=== PATIENT | female | born 1955 | race Caucasian/White ===

== ENCOUNTER 2022-11-27 14:32 | Outpatient (REF) | payer MEDICARE, SELFPAY ==
--- NOTE | ~2022-11-27 | XR_ITS ---
EXAMINATION: Thoracic and lumbar spine x-ray CLINICAL INFORMATION: Scoliosis COMPARISON: None. TECHNIQUE: 2 views of the thoracic spine and 2 views of the lumbar spine FINDINGS: There is curvature of the lower thoracic spine to the right with apex at T8. Bone alignment is otherwise normal. No fracture or dislocation. Disc spaces are normal. Paraspinal soft tissues are normal. Lumbar spine: There is curvature of the proximal lumbar spine to the left with apex at L2. Bone alignment is otherwise normal. No fracture or dislocation. Degenerative spondylosis and degenerative disc disease at L1-L2. Lower lumbar spine facet arthritis. Atherosclerotic disease. XR/XR lumbar spine 2-3V IMPRESSION: Thoracolumbar scoliosis.
--- NOTE | ~2022-11-27 | XR_ITS ---
EXAMINATION: Thoracic and lumbar spine x-ray CLINICAL INFORMATION: Scoliosis COMPARISON: None. TECHNIQUE: 2 views of the thoracic spine and 2 views of the lumbar spine FINDINGS: There is curvature of the lower thoracic spine to the right with apex at T8. Bone alignment is otherwise normal. No fracture or dislocation. Disc spaces are normal. Paraspinal soft tissues are normal. Lumbar spine: There is curvature of the proximal lumbar spine to the left with apex at L2. Bone alignment is otherwise normal. No fracture or dislocation. Degenerative spondylosis and degenerative disc disease at L1-L2. Lower lumbar spine facet arthritis. Atherosclerotic disease. XR/XR thoracic spine 2V IMPRESSION: Thoracolumbar scoliosis.
== END 2022-11-27 14:33 | disposition home or self-care (01) ==
LOC: HO.HOSX 14:32
PROVIDERS: PCP Internal Medicine; Visit Provider Neurological Surgery
DX: M41.35 Thoracogenic scoliosis, thoracolumbar region (principal); M41.9 Scoliosis, unspecified
CPT/HCPCS: 72070; 72100; 99202

== ENCOUNTER → 2023-01-25 13:21 | Outpatient (BNVA) | payer MEDICARE, SELFPAY | PROVIDERS: PCP Internal Medicine; Visit Provider Nurse Practitioner Family | DX: M41.35 Thoracogenic scoliosis, thoracolumbar region (principal); M51.36 Other intervertebral disc degeneration, lumbar region; M41.9 Scoliosis, unspecified | CPT/HCPCS: 99202 ==

== ENCOUNTER 2023-03-12 06:02 | Outpatient (REF) | payer MEDICARE, SELFPAY ==
--- NOTE | ~2023-03-12 | FL_ITS ---
EXAMINATION: XR FLUOROSCOPY WITH IMAGES CLINICAL INFORMATION: Other intervertebral disc degeneration, lumbar region. COMPARISON: None available. TECHNIQUE: Fluoroscopy Supervised By: Dr. Dante Ferrer. Fluoroscopy Time: 0.8 minutes. Cumulative Dose: 33.5 mGy. DAP: 0.526 mGy-m2. Images: 2. FINDINGS: 2 lateral views demonstrate needle placement projecting over a posterior disc space of the lumbar spine. FL/FL guidance in treatment room IMPRESSION: Fluoroscopy guidance for pain management procedure.
== END 2023-03-12 06:03 | disposition home or self-care (01) ==
LOC: CF 06:02
PROVIDERS: Visit Provider Anesthesiology
DX: M51.36 Other intervertebral disc degeneration, lumbar region (principal); M51.35 Other intervertebral disc degeneration, thoracolumbar region; M51.16 Intervertebral disc disorders with radiculopathy, lumbar region; M41.9 Scoliosis, unspecified
CPT/HCPCS: 64483; J3301; Q9967

== ENCOUNTER 2023-03-12 11:03 | Outpatient (AMB) | payer MEDICARE, SELFPAY ==
--- NOTE | 2023-03-12 11:08 | MHC.OFFVIS ---
Intake Vital Signs 03/12/23 11:09 03/12/23 12:27 Height 5 ft 4 in 5 ft 4 in Weight 188 lb 188 lb BMI 32.3 32.3 BP 124/58 L 128/80 Blood Pressure Location Rt brachial Rt brachial Position Sitting Sitting Respiration 14 14 Pulse 100 96 Pulse Source Pulse Oximeter Pulse Oximeter Pulse Oximetry (%) 95 96 Oxygen Delivery Method Room Air Room Air Comment Pre-op Post-op Intake Visit Reasons: R L2 TF EPIDURAL INJ/LOCAL Allergies No Known Allergies [No Known Allergies*] Allergy (Verified 03/12/23 11:08) PFSH Medical History (Updated 01/25/23 @ 13:59 by FATUMA Gu) Depression GERD (gastroesophageal reflux disease) Hypercholesteremia Hypertension Social History (Updated 01/25/23 @ 13:37 by Carmela Garcia) Patient Tobacco Use Status: Current everyday Tobacco user Tobacco use type: Cigarette Cigarette Packs Per Day: 1.5 Substance Use Type: Caffiene Physical Exam Vital Signs: Last Vital Signs Pulse 96 03/12/23 12:27 Resp 14 03/12/23 12:27 BP 128/80 03/12/23 12:27 Pulse Ox 96 03/12/23 12:27 Oxygen Delivery Method Room Air 03/12/23 12:27 BMI result Body Mass Index 32.3 Assessment & Plan Assessment & Plan (1) Thoracogenic scoliosis, thoracolumbar region: Code(s): M41.35 - Thoracogenic scoliosis, thoracolumbar region (2) Lumbar degenerative disc disease: Code(s): M51.36 - Other intervertebral disc degeneration, lumbar region Plan: Right L2-L3 Transforaminal epidural steroid injection Informed consent was thoroughly explained to the patient before the procedure. The patient came to the operating room. She was positioned prone on operating table with a pillow under her abdomen. Time-out was performed delineating correct site and side of the procedure, nature of the injection, name and date of of the patient. The lower back of the patient was prepped with ChloraPrep and draped with sterile utility towels. C-arm was brought over the operating field and sq picture of L3 vertebra was demonstrated on the screen. The right side was chosen as the side of the injection. Tilting machine ipsilateral to the right at the level of L3 the most prominent picture of the right L3 superior articular process was obtained on the screen. At the projection of the lateral border of the SAP L3 to the skin small amount of lidocaine 1% 3-4 cc was injected to anesthetize the skin and s/q tissues. After that 5 in 22 gauge Quincke point needle was inserted through the skin wheal and was advanced to were the L2-L3 foramina on anterior posterior and oblique views intermittently.When needle tip contacted the bone the needle was deviated laterally and after that medially to advance it below the SAP and into the L2-L3 foramina. On lateral view the needle appeared to be at the lateral superior portion of the foramina. The injection of the contrast was performed demonstrating only perineural spread of the contrast and no epidural spread of the contrast. The decision was made to withdraw the needle and the needle was repositioned. The most prominent picture of right to pedicle was demonstrated on the screen. 2 mm below the most inferior border of the pedicle projection to the skin injection of the local anesthetic lidocaine was performed. After that 22 gauge 5 in needle was driven to were the L2-L3 foramina under anterior posterior lateral and oblique views. When needle entered foramina injection of the contrast performed demonstrating epidural spread of the contrast. Aspiration reveals no no blood no CSF. Injection of the treatment medicine preservative-free lidocaine 2 cc was performed into the needle. Upon completion of the injection needle was removed sterile Band-Aid was applied. The patient tolerated procedure well. She was taking outside of the operating room to recovery room where she recovered uneventfully. She went home without immediate complications. (3) Scoliosis: Code(s): M41.9 - Scoliosis, unspecified Plan 1. Schedule Right L1 and L2 Nerve Block with local and fluoroscopy. Patient will follow up with Dr. Cárdenas post-injections to discuss a more permanent solution for thoracogenic scoliosis if these injections are successful. 2. Patient reports Meloxicam has been ineffective. Script sent for Nabumetone prn severe pain only, side effects and precautions were discussed with patient. All questions and concerns have been answered and patient agreed with the plan. Follow up as needed. Justification for interventional therapy: ? Patient with average pain > 6/10 ? Patient has exhausted conservative therapy, NSAIDs, physical and chiropractic therapy The risks, consequences, alternatives, and benefits of various treatment options were discussed with the patient in great detail, including conservative management, injections and procedures. Orders: Orders FL guidance in treatment room 03/12/23 M51.36 - Other intervertebral disc degeneration, lumbar region Coding Level of Care Code Procedure Only Diagnoses Thoracogenic scoliosis, thoracolumbar region M41.35 Lumbar degenerative disc disease M51.36 Scoliosis M41.9
[2023-03-12 11:09] VITALS: BP 124/58; PULSE 100; RESP 14; O2SAT 95; BMI 32.3
[2023-03-12 12:27] VITALS: BP 128/80; PULSE 96; RESP 14; O2SAT 96; BMI 32.3
== END 2023-03-12 12:18 | disposition home or self-care (01) ==
PROVIDERS: PCP Internal Medicine; Visit Provider Anesthesiology
DX: M51.16 Intervertebral disc disorders with radiculopathy, lumbar region (principal); M41.35 Thoracogenic scoliosis, thoracolumbar region; M41.9 Scoliosis, unspecified
CPT/HCPCS: 64483

== ENCOUNTER 2023-03-26 06:01 | Outpatient (REF) | payer MEDICARE, SELFPAY ==
--- NOTE | ~2023-03-26 | FL_ITS ---
EXAMINATION: XR FLUOROSCOPY WITH IMAGES CLINICAL INFORMATION: Other interventional disc degeneration, lumbar region. COMPARISON: None available. TECHNIQUE: Fluoroscopy Supervised By: Dr. Dante Ferrer. Fluoroscopy Time: 0.3 minutes. Cumulative Dose: 9.32 mGy. DAP: 0.161 Gycm2. Images: 2. FINDINGS: Images demonstrate needle placement and contrast injection adjacent to the posterior lateral right L1 and L2 vertebral bodies FL/FL guidance in treatment room IMPRESSION: Fluoroscopy guidance for pain management procedure
== END 2023-03-26 06:02 | disposition home or self-care (01) ==
LOC: CF 06:01
PROVIDERS: Visit Provider Anesthesiology
DX: M51.36 Other intervertebral disc degeneration, lumbar region (principal); M41.35 Thoracogenic scoliosis, thoracolumbar region; M41.9 Scoliosis, unspecified; M51.16 Intervertebral disc disorders with radiculopathy, lumbar region
CPT/HCPCS: 64483; J3301

== ENCOUNTER 2023-03-26 11:05 | Outpatient (AMB) | payer MEDICARE, SELFPAY ==
[2023-03-26 11:11] VITALS: BP 122/64; PULSE 103; RESP 17; O2SAT 94; BMI 32.3
--- NOTE | 2023-03-26 11:11 | A.OFFVIS_ITS ---
Intake Vital Signs 03/26/23 11:11 03/26/23 13:18 Height 5 ft 4 in 5 ft 4 in Weight 188 lb 188 lb BMI 32.3 32.3 BP 122/64 118/70 Blood Pressure Location Lt brachial Rt brachial Position Sitting Sitting Respiration 17 16 Pulse 103 H 62 Pulse Source Pulse Oximeter Pulse Oximeter Pulse Oximetry (%) 94 98 Oxygen Delivery Method Room Air Room Air Comment pre-op post-op Intake Visit Reasons: RIGHT L1 TFESI Allergies No Known Allergies [No Known Allergies*] Allergy (Verified 03/26/23 11:12) PFSH Medical History (Updated 03/26/23 @ 12:23 by Dante Ferrer MD) Depression GERD (gastroesophageal reflux disease) Hypercholesteremia Hypertension Social History (Updated 01/25/23 @ 13:37 by aCrmela Garcia) Patient Tobacco Use Status: Current everyday Tobacco user Tobacco use type: Cigarette Cigarette Packs Per Day: 1.5 Substance Use Type: Caffiene Physical Exam Vital Signs: Last Vital Signs Pulse 62 03/26/23 13:18 Resp 16 03/26/23 13:18 BP 118/70 03/26/23 13:18 Pulse Ox 98 03/26/23 13:18 Oxygen Delivery Method Room Air 03/26/23 13:18 BMI result Body Mass Index 32.3 Assessment & Plan Assessment & Plan (1) Thoracogenic scoliosis, thoracolumbar region: Code(s): M41.35 - Thoracogenic scoliosis, thoracolumbar region (2) Lumbar degenerative disc disease: Code(s): M51.36 - Other intervertebral disc degeneration, lumbar region Plan: Right L1-L2 Transforaminal epidural steroid injection Informed consent was thoroughly explained to the patient before the procedure. The patient came to the operating room. She was positioned prone on operating t able with a pillow under her abdomen. Time-out was performed delineating correct site and side of the procedure, nature of the injection, name and date of of the patient. The lower back of the patient was prepped with ChloraPrep and draped with sterile utility towels. C-arm was brought over the operating field and sq picture of L2 vertebra was demonstrated on the screen. The right side was chosen as the side of the injection. Tilting machine ipsilateral to the right at the level of L2 the most prominent picture of the right L2 superior articular process was obtained on the screen. At the projection of the lateral border of the SAP L2 to the skin small amount of lidocaine 1% 3-4 cc was injected to anesthetize the skin and s/q tissues. After that 5 in 22 gauge Quincke point needle was inserted through the skin wheal and was advanced to were the L2-L3 foramina on anterior posterior and oblique views intermittently.When needle tip contacted the bone the needle was deviated laterally and after that medially to advance it below the SAP and into the L1-L2 foramina. On lateral view the needle appeared to be at the lateral superior portion of the foramina. The injection of the contrast was performed demonstrating epidural spread of the contrast. Aspiration reveals no no blood no CSF. Injection of the treatment medicine preservative-free lidocaine 1% 2 cc was performed into the needle. Upon completion of the injection needle was removed sterile Band-Aid was applied. The patient tolerated procedure well. She was taking outside of the operating room to recovery room where she recovered uneventfully. She went home without immediate complications. (3) Scoliosis: Code(s): M41.9 - Scoliosis, unspecified (4) Intervertebral disc disorders with radiculopathy, lumbar region: Code(s): M51.16 - Intervertebral disc disorders with radiculopathy, lumbar region Plan 1. Schedule Right L1 and L2 Nerve Block with local and fluoroscopy. Patient will follow up with Dr. Cárdenas post-injections to discuss a more permanent solution for thoracogenic scoliosis if these injections are successful. 2. Patient reports Meloxicam has been ineffective. Script sent for Nabumetone prn severe pain only, side effects and precautions were discussed with patient. All questions and concerns have been answered and patient agreed with the plan. Follow up as needed. Justification for interventional therapy: ? Patient with average pain > 6/10 ? Patient has exhausted conservative therapy, NSAIDs, physical and chiropractic therapy The risks, consequences, alternatives, and benefits of various treatment options were discussed with the patient in great detail, including conservative management, injections and procedures. Orders: Orders FL guidance in treatment room Today M51.36 - Other intervertebral disc degeneration, lumbar region Coding Level of Care Code Procedure Only Diagnoses Thoracogenic scoliosis, thoracolumbar region M41.35 Lumbar degenerative disc disease M51.36 Scoliosis M41.9 Intervertebral disc disorders with radiculopathy, lumbar region M51.16
[2023-03-26 13:18] VITALS: BP 118/70; PULSE 62; RESP 16; O2SAT 98; BMI 32.3
== END 2023-03-26 12:02 | disposition home or self-care (01) ==
PROVIDERS: PCP Internal Medicine; Visit Provider Anesthesiology
DX: M41.35 Thoracogenic scoliosis, thoracolumbar region (principal); M51.36 Other intervertebral disc degeneration, lumbar region; M41.9 Scoliosis, unspecified; M51.16 Intervertebral disc disorders with radiculopathy, lumbar region
CPT/HCPCS: 64483

== ENCOUNTER 2023-03-28 10:28 | Outpatient (AMB) | payer MEDICARE, SELFPAY ==
--- NOTE | 2023-03-28 10:31 | MHC.OFFVIS ---
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 Ferrer. Patient Reports 20% pain relief for few hours post procedures with Right L2-L3 TF Epidural injection which only allowed her ability to tolerate standing for 4-5 min before pain returned. Currently reports her back pain with standing comes on after one minute. Patient also reports 100% pain relief for 2 hours with any activity or movements, including walking, standing, or sitting with Right L1 Transforaminal Epidural Injection. Patient also reports intermittent left sided back pain that radiates into her left thigh and left inner leg and occasionally heel but not toes. She has upcoming follow up with Dr. Cárdenas on 04/17/23 for potential surgery evaluation but really would like to avoid back surgery. Patient rates her back pain at 6/10 today. Denies any pain with bending but continues to experience back pain with walking or standing. Denies any recent cough, cold, infection, fever or other significant changes in medical history since last office visit. Patient denies any foot drop, bladder or bowel incontinence or saddle anesthesia. PRIOR: Patient is a pleasant 68 years old female with prior history of thoracogenic scoliosis thoracolumbar region with neurogenic claudication?and lumbar degenerative disc disease, presents today for right sided back pain. Reports significant history of scoliosis since adolescents and more recent past 5 years facetogenic and radicular back pain for which she underwent multiple injections, including SIJ, facet and epidural steroid injections without pain relief. Patient reports she has not gained any function improvement or pain relief with physical therapy or chiropractic manipulation. Reports pain as constant dull, aching and heavy sensations in right posterior waist increased with prolonged walking or standing. Denies weakness, numbness, tingling sensations or radiating pain down into her legs or feet. Reports history of right hip replacement that relieved her right leg pain. She has tried NSAIDs, Tylenol and gabapentin with continued symptoms. Patient was referred to us by Neurosurgeon Dr. Cárdenas for an L1 and L2 nerve blocks on the right side for potential permanent solution if the injections are successful. Per Dr. Cárdenas notes, lumbar spine MRI at [facility] shows a thoracolumbar scoliosis from T11 to L3 with the apex towards the left side producing foraminal stenosis at L1 and L2. [facility] Medical History Depression GERD (gastroesophageal reflux disease) Hypercholesteremia Hypertension Social History Patient Tobacco Use Status: Current everyday Tobacco user Tobacco use type: Cigarette Cigarette Packs Per Day: 1.5 Substance Use Type: Caffiene Review of Systems Const All systems reviewed & are unremarkable except as noted in HPI and below Physical Exam Vital Signs: Last Vital Signs Pulse 101 H 03/28/23 10:35 BP 137/69 03/28/23 10:35 Pulse Ox 98 03/28/23 10:35 Oxygen Delivery Method Room Air 03/28/23 10:35 BMI result Body Mass Index 32.6 General: Appears afebrile. Alert and oriented. Mood and affect appropriate. Follows and participates in conversation appropriately. Respiratory effort is unlabored. No cough. Able to transition from sit to stand unassisted. Back/Spine/Pelvis Cervical Spine: cervical ROM normal, No Cervical spine tenderness and No step off deformity Thoracic/Lumbar Spine: thoracic and lumbar spine normal to inspection, No Thoracic/lumbar spine scar(s), Lasegue's sign positive on the left and diffuse, pain with thoraco-lumbar ROM, paraspinal muscle tenderness, Thoracic/lumbar scoliosis, thoraco-lumbar spasm on the right, No thoracic spinal tenderness and lumbar spinal tenderness Pelvis: no buttock tenderness Sacroiliac joints: bilaterally nontender Results Reviewed Results Reviewed: Thoracic and lumbar spine x-ray 11/27/22 CLINICAL INFORMATION: Scoliosis FINDINGS: There is curvature of the lower thoracic spine to the right with apex at T8. Bone alignment is otherwise normal. No fracture or dislocation. Disc spaces are normal. Paraspinal soft tissues are normal. Lumbar spine: There is curvature of the proximal lumbar spine to the left with apex at L2. Bone alignment is otherwise normal. No fracture or dislocation. Degenerative spondylosis and degenerative disc disease at L1-L2. Lower lumbar spine facet arthritis. Atherosclerotic disease. IMPRESSION: Thoracolumbar scoliosis. Assessment & Plan Assessment & Plan (1) Intervertebral disc disorders with radiculopathy, lumbar region: Code(s): M51.16 - Intervertebral disc disorders with radiculopathy, lumbar region (2) Lumbar degenerative disc disease: Code(s): M51.36 - Other intervertebral disc degeneration, lumbar region (3) Thoracogenic scoliosis, thoracolumbar region: Code(s): M41.35 - Thoracogenic scoliosis, thoracolumbar region Plan Patient is status post Right L2-L3 and Right L1 Transforaminal Epidural Injections on 03/12 and 03/[address] Ferrer with resolution of her back symptoms with Right L1 TF Epidural injection for 2 hours. Pateint also intermittent left sided back pain that radiates into her left thigh and left inner leg and occasionally heel but not toes. She has upcoming follow up with Dr. Cárdenas on 04/17/23 for potential surgery evaluation but really would like to avoid back surgery. If patient is deemed non-surgical, we can proceed with Right L1 and Left L4 TFESI for her radicular symptoms. Expectations, risks and benefits were reviewed.?All questions and concerns have been answered and patient agreed with the plan. Follow up as needed. Coding Level of Care Code Est Pt Level 4 (08579) Diagnoses Intervertebral disc disorders with radiculopathy, lumbar region M51.16 Lumbar degenerative disc disease M51.36 Thoracogenic scoliosis, thoracolumbar region M41.35
[2023-03-28 10:35] VITALS: BP 137/69; PULSE 101; O2SAT 98; BMI 32.6
== END 2023-03-28 10:55 | disposition home or self-care (01) ==
PROVIDERS: PCP Internal Medicine; Visit Provider Nurse Practitioner Family
DX: M51.16 Intervertebral disc disorders with radiculopathy, lumbar region (principal); M51.36 Other intervertebral disc degeneration, lumbar region; M41.35 Thoracogenic scoliosis, thoracolumbar region
CPT/HCPCS: 99214

== ENCOUNTER → 2023-03-28 10:28 | Outpatient (BNVA) | payer MEDICARE, SELFPAY | PROVIDERS: PCP Internal Medicine; Visit Provider Nurse Practitioner Family | DX: M51.16 Intervertebral disc disorders with radiculopathy, lumbar region (principal); M51.36 Other intervertebral disc degeneration, lumbar region; M41.35 Thoracogenic scoliosis, thoracolumbar region; Z98.890 Other specified postprocedural states | CPT/HCPCS: 99212 ==

== ENCOUNTER 2023-04-17 14:18 | Outpatient (AMB) | payer MEDICARE, SELFPAY ==
--- NOTE | 2023-04-17 14:38 | A.SPINEOV_ITS ---
Intake Intake Visit Reasons: follow up after injections Intake Note: Ms. Leigh is here today for follow up after injections. Plumber Supervisor Required: No Allergies No Known Allergies [No Known Allergies*] Allergy (Verified 03/28/23 10:35) Assessment & Plan Assessment & Plan (1) Thoracogenic scoliosis, thoracolumbar region: Code(s): M41.35 - Thoracogenic scoliosis, thoracolumbar region Plan Dear colleague, On 04/17/2023 I saw for follow-up Rebeca Leigh. She underwent a right L1 and L2 nerve block. She had 100% relief with a right L1 block for 2 hours. The apex of the patient's thoracolumbar scoliosis is at L1-L2, where the right L1 nerve root is compressed. I recommend a therapeutic block of the L1 nerve root. We also discussed partial correction of the thoracolumbar scoliosis to decompress the L1 nerve root. First, we need to exhaust all conservative measurements before considering this. She will return to my office went injections do not work. I spent 30 minutes in this consult preparation, review of imaging and discussing plan with answering questions. Jaycob Cárdenas MD, PhD Spine Fellowship Trained Neurosurgeon Director, [facility] Coding Level of Care Code Est Pt Level 4 (16943) Diagnoses Thoracogenic scoliosis, thoracolumbar region M41.35
== END 2023-04-17 14:55 | disposition home or self-care (01) ==
PROVIDERS: PCP Internal Medicine; Visit Provider Neurological Surgery
DX: M41.35 Thoracogenic scoliosis, thoracolumbar region (principal)
CPT/HCPCS: 99214

== ENCOUNTER → 2023-04-17 14:18 | Outpatient (BNVA) | payer MEDICARE, SELFPAY | PROVIDERS: PCP Internal Medicine; Visit Provider Neurological Surgery | DX: M41.35 Thoracogenic scoliosis, thoracolumbar region (principal) | CPT/HCPCS: 99212 ==

== ENCOUNTER 2023-04-30 06:11 | Outpatient (REF) | payer MEDICARE, SELFPAY ==
--- NOTE | ~2023-04-30 | FL_ITS ---
EXAMINATION: XR FLUOROSCOPY WITH IMAGES CLINICAL INFORMATION: Intervertebral disc disorders with radiculopathy, lumbar region. COMPARISON: Lumbar spine x-ray November 2022. Pain management procedures February 2023 TECHNIQUE: Fluoroscopy Supervised By: Dr. Dante Ferrer. Fluoroscopy Time: 0.2 minutes. Cumulative Dose: 5.00 mGy. DAP: 0.0869 Gycm2. Images: 1. FINDINGS: Single PA image demonstrates needle placement over a proximal lumbar vertebral body, probably L1. There is lumbar scoliosis and multilevel degenerative changes. FL/FL guidance in treatment room IMPRESSION: Fluoroscopy guidance for pain management procedure
== END 2023-04-30 06:12 | disposition home or self-care (01) ==
LOC: CF 06:11
PROVIDERS: Visit Provider Anesthesiology
DX: M51.16 Intervertebral disc disorders with radiculopathy, lumbar region (principal); M51.36 Other intervertebral disc degeneration, lumbar region; M41.35 Thoracogenic scoliosis, thoracolumbar region
CPT/HCPCS: 64483; 64484

== ENCOUNTER 2023-04-30 12:47 | Outpatient (AMB) | payer MEDICARE, SELFPAY ==
--- NOTE | 2023-04-30 13:09 | MHC.OFFVIS ---
Intake Vital Signs 04/30/23 13:10 04/30/23 13:14 Height 5 ft 4 in 5 ft 4 in Weight 190 lb 190 lb BMI 32.6 32.6 BP 118/62 128/84 Blood Pressure Location Rt brachial Lt brachial Position Sitting Sitting Respiration 16 16 Pulse 114 H 96 Pulse Source Pulse Oximeter Pulse Oximeter Pulse Oximetry (%) 94 98 Oxygen Delivery Method Room Air Room Air Comment pre-op post-op Intake Visit Reasons: RIGHT L1 AND LEFT L4 TFESI/LOCAL Allergies No Known Allergies [No Known Allergies*] Allergy (Verified 04/30/23 13:09) PFSH Medical History Depression GERD (gastroesophageal reflux disease) Hypercholesteremia Hypertension Social History Patient Tobacco Use Status: Current everyday Tobacco user Tobacco use type: Cigarette Cigarette Packs Per Day: 1.5 Substance Use Type: Caffiene Physical Exam Vital Signs: Last Vital Signs Pulse 96 04/30/23 13:14 Resp 16 04/30/23 13:14 BP 128/84 04/30/23 13:14 Pulse Ox 98 04/30/23 13:14 Oxygen Delivery Method Room Air 04/30/23 13:14 BMI result Body Mass Index 32.6 Assessment & Plan Assessment & Plan (1) Intervertebral disc disorders with radiculopathy, lumbar region: Code(s): M51.16 - Intervertebral disc disorders with radiculopathy, lumbar region (2) Lumbar degenerative disc disease: Code(s): M51.36 - Other intervertebral disc degeneration, lumbar region (3) Thoracogenic scoliosis, thoracolumbar region: Code(s): M41.35 - Thoracogenic scoliosis, thoracolumbar region Plan: Attempt to perform right L1 transforaminal epidural steroid injection therapeutic. The patient came to the operating room she was positioned prone on operating table. She was not sedated. Time-out was performed delineating correct site and side of the procedure. C-arm was brought over the operating field and sq picture of grossly rotated L1 vertebra was demonstrated on the screen. It would require C-arm to tilt to the right almost 15 degrees to obtain the sq picture. From that point on oblique view was obtained approximately at 45 degrees on which show most prominent image of the superior articular process of L2 on the right was demonstrated on the screen. Lateral border of the S AP was chosen as the target of the needle insertion. The projection of the target to the skin was injected with small amount of lidocaine 2%, after that 22 gauge 5 in needle started to advanced to were the superior articular process of L2. When needle gently contacted the bone the needle was attempted to deviate laterally, at this point patient started to complain on severe discomfort in the lower back. Considering this patient's severe scoliosis and severe spondyloarthritis this would not be unusual to encounter in this kind of the procedure. At this moment unfortunately patient decided that ?I had too much, please stop ?. The needle was withdrawn sterile Band-Aid was applied. Plan Patient is status post Right L2-L3 and Right L1 Transforaminal Epidural Injections on 03/12 and 03/[address] Ferrer with resolution of her back symptoms with Right L1 TF Epidural injection for 2 hours. Pateint also intermittent left sided back pain that radiates into her left thigh and left inner leg and occasionally heel but not toes. She has upcoming follow up with Dr. Cárdenas on 04/17/23 for potential surgery evaluation but really would like to avoid back surgery. If patient is deemed non-surgical, we can proceed with Right L1 and Left L4 TFESI for her radicular symptoms. Expectations, risks and benefits were reviewed.?All questions and concerns have been answered and patient agreed with the plan. Follow up as needed. Orders: Orders FL guidance in treatment room 04/30/23 M51.16 - Intervertebral disc disorders with radiculopathy, lumbar region Coding Level of Care Code Procedure Only Diagnoses Intervertebral disc disorders with radiculopathy, lumbar region M51.16 Lumbar degenerative disc disease M51.36 Thoracogenic scoliosis, thoracolumbar region M41.35
[2023-04-30 13:10] VITALS: BP 118/62; PULSE 114; RESP 16; O2SAT 94; BMI 32.6
[2023-04-30 13:14] VITALS: BP 128/84; PULSE 96; RESP 16; O2SAT 98; BMI 32.6
== END 2023-04-30 13:38 | disposition home or self-care (01) ==
LOC: HO.PMCPRC 12:47
PROVIDERS: PCP Internal Medicine; Visit Provider Anesthesiology
DX: M51.16 Intervertebral disc disorders with radiculopathy, lumbar region (principal); M51.36 Other intervertebral disc degeneration, lumbar region; M41.35 Thoracogenic scoliosis, thoracolumbar region
CPT/HCPCS: 64483; 64484

== ENCOUNTER 2023-05-20 12:46 | Outpatient (AMB) | payer MEDICARE, SELFPAY ==
--- NOTE | 2023-05-20 13:02 | A.OFFVIS_ITS ---
Intake Vital Signs 05/20/23 13:13 Height 5 ft 4 in Weight 189 lb 2 oz BMI 32.5 BP 174/79 H Blood Pressure Location Rt brachial Position Sitting Pulse 91 Pulse Source Pulse Oximeter Pulse Oximetry (%) 96 Oxygen Delivery Method Room Air Intake Visit Reasons: Re-eval of back pain Allergies No Known Allergies [No Known Allergies*] Allergy (Verified 05/20/23 13:13) Medication List - Last Reconciled 05/20/23 by Inna Disla RN atorvastatin 10 mg PO DAILY bupropion HCl 150 mg PO QAM citalopram 20 mg PO DAILY lisinopril 10 mg PO DAILY meloxicam 15 mg PO DAILY nabumetone 750 mg PO BID PRN omeprazole 20 mg PO DAILY HPI HPI Comments History of Present Illness Details Patient presents today to discuss possibility of treatment of her lower back pain with injections versus neurosurgical intervention. Attention was attracted today that the patient is not complaining at all on axial lower back pain. She also stopped complaining on the pain in the projection of the right iliac crest and she only complains on pain in the projection of the right lateral hip. She reports that the pain spreads from the right laterals hip to the right lateral thigh to the level of mid thigh and not below that level. She reports at this moment no pain radiating to the groin. It is possible that her pain is not related to those changes in the right L1-L2 and L2-L3 vertebra as on the lumbar spine although the image is very dramatic with significant side way listhesis of the L1 vertebra over the L2 vertebra. It is possible that this after all her condition is related to right hip pathology rather than anything affecting her spine at the upper spinal levels. I discussed the situation with her offered her to treat her pain empirically with We[employer] spinal cord stimulator lead inserted into the right gutter of the lumbar spine to stimulate dorsal root ganglions at L1 and L2 nerve roots. I also will send her for right hip x-ray to evaluate that may be the hip conditions would be treatable after x- ray evaluation. In preparation for spinal cord stimulation I will send her for evaluation with [facility] psychology. to assess response to Right L2-L3 and Right L1 Transforaminal Epidural I njections on 03/12 and 03/[address] Ferrer. Patient Reports 20% pain relief for few hours post procedures with Right L2-L3 TF Epidural injection which only allowed her ability to tolerate standing for 4- 5 min before pain returned. Currently reports her back pain with standing comes on after one minute. Patient also reports 100% pain relief for 2 hours with any activity or movements, including walking, standing, or sitting with Right L1 Transforaminal Epidural Injection. Patient also reports intermittent left sided back pain that radiates into her left thigh and left inner leg and occasionally heel but not toes. She has upcoming follow up with Dr. Cárdenas on 04/17/23 for potential surgery evaluation but really would like to avoid back surgery. Patient rates her back pain at 6/10 today. Denies any pain with bending but continues to experience back pain with walking or standing. Denies any recent cough, cold, infection, fever or other significant changes in medical history since last office visit. Patient denies any foot drop, bladder or bowel incontinence or saddle anesthesia. PRIOR: Patient is a pleasant 68 years old female with prior history of thoracogenic scoliosis thoracolumbar region with neurogenic claudication?and lumbar degenerative disc disease, presents today for right sided back pain. Reports significant history of scoliosis since adolescents and more recent past 5 years facetogenic and radicular back pain for which she underwent multiple injections, including SIJ, facet and epidural steroid injections without pain relief. Patient reports she has not gained any function improvement or pain relief with physical therapy or chiropractic manipulation. Reports pain as constant dull, aching and heavy sensations in right posterior waist increased with prolonged walking or standing. Denies weakness, numbness, tingling sensations or radiating pain down into her legs or feet. Reports history of right hip replacement that relieved her right leg pain. She has tried NSAIDs, Tylenol and gabapentin with continued symptoms. Patient was referred to us by Neurosurgeon Dr. Cárdenas for an L1 and L2 nerve blocks on the right side for potential permanent solution if the injections are successful. Per Dr. Cárdenas notes, lumbar spine MRI at [facility] shows a thoracolumbar scoliosis from T11 to L3 with the apex towards the left side producing foraminal stenosis at L1 and L2. FOR[facility]LY [facility], [facility] Medical History Depression GERD (gastroesophageal reflux disease) Hypercholesteremia Hypertension Social History Patient Tobacco Use Status: Current everyday Tobacco user Tobacco use type: Cigarette Cigarette Packs Per Day: 1.5 Substance Use Type: Caffiene Review of Systems Const All systems reviewed & are unremarkable except as noted in HPI and below Physical Exam Vital Signs: Last Vital Signs Pulse 91 05/20/23 13:13 BP 174/79 H 05/20/23 13:13 Pulse Ox 96 05/20/23 13:13 Oxygen Delivery Method Room Air 05/20/23 13:13 BMI result Body Mass Index 32.5 General: Appears afebrile. Alert and oriented. Mood and affect appropriate. Follows and participates in conversation appropriately. Respiratory effort is unlabored. No cough. Able to transition from sit to stand unassisted. Back/Spine/Pelvis Cervical Spine: cervical ROM normal, No Cervical spine tenderness and No step off deformity Thoracic/Lumbar Spine: thoracic and lumbar spine normal to inspection, No Thoracic/lumbar spine scar(s), Lasegue's sign positive on the left and diffuse, pain with thoraco-lumbar ROM, paraspinal muscle tenderness, Thoracic/lumbar scoliosis, thoraco-lumbar spasm on the right, No thoracic spinal tenderness and lumbar spinal tenderness Pelvis: no buttock tenderness Sacroiliac joints: bilaterally nontender Assessment & Plan Assessment & Plan (1) Arthritis of right hip: Code(s): M16.11 - Unilateral primary osteoarthritis, right hip (2) Intervertebral disc disorders with radiculopathy, lumbar region: Code(s): M51.16 - Intervertebral disc disorders with radiculopathy, lumbar region (3) Lumbar degenerative disc disease: Code(s): M51.36 - Other intervertebral disc degeneration, lumbar region (4) Thoracogenic scoliosis, thoracolumbar region: Code(s): M41.35 - Thoracogenic scoliosis, thoracolumbar region Plan Patient is status post Right L2-L3 and Right L1 Transforaminal Epidural Inject ions on 03/12 and 03/26 as well as attempt of transforaminal epidural steroid injection L1-L2 with patient's inability to stand on the operating table and requesting to terminate the procedure. Originally Right L1 TF Epidural injection for 2 hours resulted in 100% pain relief and only 20% pain relieve on L2-L3 foramina. However attention today attracted that the patient has no axial pain and no pain in the back at all. Most of her complain now shifted to the pain in the lateral hip. She does not report pain radiation to the groin but in the past she certainly did so. The trend of thought was that the groin pain is related to L1 radiculopathy. But today we took into consideration the fact that it might be related to the hip osteoarthritis on the right I will send her for the x-ray. while we are waiting for x-ray results I will start to schedule her for [facility] evaluation. If her psychological evaluation will be ready and hip x-ray will be unremarkable I will schedule the patient for [employer] trial of spinal cord stimulator 16 leads advanced to the right gutter at L1-L2 & L2-L3 vertebral projections. Orders: Orders XR hip RT min 2V Today M16.11 - Unilateral primary osteoarthritis, right hip Patient Instructions: I here by testify that I had very long and detailed conversation with this patient today which took me 40 minutes to finish the conversation as well as another 5 minutes to plan her care and organized her note as well as order her a study. Coding Level of Care Code Est Pt Level 5 (76534) Diagnoses Arthritis of right hip M16.11 Intervertebral disc disorders with radiculopathy, lumbar region M51.16 Lumbar degenerative disc disease M51.36 Thoracogenic scoliosis, thoracolumbar region M41.35
[2023-05-20 13:13] VITALS: BP 174/79; PULSE 91; O2SAT 96; BMI 32.5
== END 2023-05-20 14:05 | disposition home or self-care (01) ==
PROVIDERS: PCP Internal Medicine; Visit Provider Anesthesiology
DX: M16.11 Unilateral primary osteoarthritis, right hip (principal); M51.16 Intervertebral disc disorders with radiculopathy, lumbar region; M51.36 Other intervertebral disc degeneration, lumbar region; M41.35 Thoracogenic scoliosis, thoracolumbar region
CPT/HCPCS: 99215

== ENCOUNTER → 2023-05-20 12:46 | Outpatient (BNVA) | payer MEDICARE, SELFPAY | PROVIDERS: PCP Internal Medicine; Visit Provider Anesthesiology | DX: M16.11 Unilateral primary osteoarthritis, right hip (principal); M51.16 Intervertebral disc disorders with radiculopathy, lumbar region; M51.36 Other intervertebral disc degeneration, lumbar region; M41.35 Thoracogenic scoliosis, thoracolumbar region | CPT/HCPCS: 99212 ==

== ENCOUNTER 2023-05-29 10:11 | Outpatient (REF) | payer MEDICARE, SELFPAY ==
--- NOTE | ~2023-05-29 | XR_ITS ---
EXAMINATION: XR HIP, RIGHT CLINICAL INFORMATION: Osteoarthritis right hip COMPARISON: Right hip radiograph from 02/19/2018 TECHNIQUE: Two views of the right hip. FINDINGS: Status post right hip arthroplasty. Orthopedic hardware is grossly intact. Joint space alignment are maintained. No acute visible fracture or dislocation. Soft tissues are unremarkable. XR/XR hip RT min 2V IMPRESSION: 1. No acute visible fracture or dislocation. 2. Status post right hip arthroplasty with intact orthopedic hardware.
== END 2023-05-29 10:12 | disposition home or self-care (01) ==
LOC: HO.XRAY 10:11
PROVIDERS: PCP Internal Medicine; Visit Provider Anesthesiology
DX: M16.11 Unilateral primary osteoarthritis, right hip (principal)
CPT/HCPCS: 73502

== ENCOUNTER 2023-06-12 14:35 | Outpatient (AMB) | payer MEDICARE, SELFPAY ==
--- NOTE | 2023-06-12 15:07 | HO.SPINEOV ---
Intake Intake Visit Reasons: Discuss SCS trial Intake Note: Ms. Leigh is here today to discuss SCS trial. [employer] Associate Required: No Allergies No Known Allergies [No Known Allergies*] Allergy (Verified 05/20/23 13:13) Assessment & Plan Assessment & Plan (1) Thoracogenic scoliosis, thoracolumbar region: Code(s): M41.35 - Thoracogenic scoliosis, thoracolumbar region Plan Dear colleague, On 06/12/2023, I saw for follow-up Rebeca Leigh. This patient is suffering from a right posterior waist pain in a neurogenic claudication presentation in the presence of a thoracolumbar scoliosis. An L1 diagnostic nerve block provided her 100% relief for 2 hours. An L2 and L3 block provided no relief. This is in accordance with radiological findings of a thoracolumbar scoliosis with an apex at L1-L2, where the right L1 nerve root is compressed. I referred for a therapeutic L1 nerve block, which has not happened. The patient would prefer a referral to another pain specialist and therefore I am going to send her to for a right L1 therapeutic nerve block. The patient will update me on the results. I spent 16 minutes in this consult. Thank you for letting me take care of your patient. Jaycob Cárdenas MD, PhD Spine Fellowship Trained Neurosurgeon Director, [facility] Orders: Referrals Physiatry Referral M41.35 - Thoracogenic scoliosis, thoracolumbar region Coding Level of Care Code Est Pt Level 2 (40413) Diagnoses Thoracogenic scoliosis, thoracolumbar region M41.35
== END 2023-06-12 15:42 | disposition home or self-care (01) ==
PROVIDERS: PCP Internal Medicine; Visit Provider Neurological Surgery
DX: M41.35 Thoracogenic scoliosis, thoracolumbar region (principal)
CPT/HCPCS: 99212

== ENCOUNTER → 2023-06-12 14:35 | Outpatient (BNVA) | payer MEDICARE, SELFPAY | PROVIDERS: PCP Internal Medicine; Visit Provider Neurological Surgery | DX: M41.35 Thoracogenic scoliosis, thoracolumbar region (principal) | CPT/HCPCS: 99212 ==

== ENCOUNTER 2024-05-06 09:29 | Outpatient (REF) | payer MEDICARE, SELFPAY ==
--- NOTE | ~2024-05-06 | MR_ITS ---
EXAMINATION: MR LUMBAR SPINE WITHOUT CONTRAST CLINICAL INFORMATION: Spinal stenosis; radiculopathy. Low back pain, chronic. COMPARISON: No prior. TECHNIQUE: Multiplanar multisequence MR imaging of the lumbar spine was done without IV contrast. Examination was performed on a 1.5 Fide Siemens magnet, utilizing standard sequences. Study submitted for interpretation 07/03/2024. FINDINGS: CORONAL ALIGNMENT: -Levoconvex scoliosis, apex at L2, De Santiago angle of 33 degrees. There is a rotatory component. SAGITTAL ALIGNMENT: - Straightening of the normal lordosis. -There is a 3 mm degenerative retrolisthesis of L2 on L3. -Alignment is otherwise anatomic. LUMBOSACRAL JUNCTION: -Normal. There are 5 [id number] lumbar-type vertebral bodies. VERTEBRAL BODIES/BONE MARROW: -Prominent endplate edematous changes oriented worst the right at L2-3. -No additional bone marrow edema or abnormal infiltrating bone marrow signal. -No compression deformities. DISCS: -Severe disc degeneration present at L1-2, and L2-3. -Mild to moderate degeneration at T12-L1. -Mild degeneration noted at at L3-4, L4-5, and L5-S1. SPINAL CANAL: -No abnormal developmental findings. -Early termination of the thecal sac is present at the superior endplate of S1. CONUS MEDULLARIS: -Terminates at inferior T12. Morphology and signal is normal. INTRADURAL NERVE ROOTS: - No masses or abnormal clumping. Axial Disc Space Images: T12-L1: Only seen sagittally. Shallow bulging disc present, with central annular fissuring. No significant central canal narrowing. Mild bilateral neural foraminal narrowing. L1-L2: There is a shallow disc osteophytic ridge complex, asymmetrically prominent to the right, a superimposed right foraminal and lateral to foramen disc osteophytic protrusion. In addition, there is a left foraminal and lateral to foramen disc osteophytic protrusion. Mild degenerative hypertrophic facet changes right greater than left. Mild central canal narrowing, mild right subarticular recess narrowing, and moderate right neural foraminal narrowing. There is mild left foraminal narrowing. L2-L3: There is a diffuse disc osteophytic ridge complex present, asymmetrically prominent to the left, with associated left greater than right foraminal disc osteophytic protrusions. There are moderate hypertrophic degenerative facet changes with mild posterior ligamentous thickening/infolding. There is mild dorsal epidural lipomatosis. There is moderate central canal stenosis, mild bilateral subarticular recess stenosis, severe right, and moderate left neural foraminal stenosis. L3-L4: There is a left foraminal disc extrusion present, and a minimal right foraminal disc protrusion with annular fissuring. Moderate bilateral hypertrophic degenerative facet changes, posterior ligamentous thickening/infolding, dorsal epidural lipomatosis, with combination of findings resulting in moderate central canal stenosis, mild bilateral subarticular recess stenosis left greater than right, moderate left and mild to moderate right neural foraminal narrowing. L4-L5: There is a small right foraminal disc protrusion. There is a larger left foraminal disc extrusion. There are moderate hypertrophic degenerative facet changes right greater than left, with the right facet joint effusion, abundant spurring, with ligamentous thickening/infolding. The combination of findings is resulting in mild central canal stenosis, mild left greater than right subarticular recess stenosis, mild right and moderate left neural foraminal stenosis. L5-S1: There is a shallow concentric disc bulge present extending into the right greater than left foraminal zones. There are end-stage degenerative facet changes with facet joint effusion, spurring, and sclerosis. There is mild ligamentous thickening/infolding. Early termination of the thecal sac is present at the superior endplate of S1 vs diffuse epidural lipomatosis. There is otherwise no significant central canal or lateral recess stenosis. There is moderate to severe left and mild right neural foraminal stenosis. There may be mild impingement of the exiting the left L5 root. IMAGED SI JOINTS: -Mild to moderate degenerative arthrosis bilaterally. PARAVERTEBRAL AND INCLUDED EXTRASPINAL SOFT TISSUES: -No abnormality seen. MR/MR lumbar spine wo con IMPRESSION: 1. Moderate levoconvex scoliosis, apex at L2, estimated at 33 degrees with a rotatory component. 2. Moderate to advanced lumbar spondylosis. Significant facet degeneration present L4-5 and L5-S1. Moderate central canal stenosis present at L2-3 and L3-4. Significant foraminal stenosis at L2-3, L5-S1. See above for details. 3. Edematous endplate changes at L2-3. There is an associated 3 mm retrolisthesis at this level. 4. Additional findings as described above. Electronically signed by: Viet Ott MD 07/03/2024 09:43 AM DOMENICO
== END 2024-05-06 09:30 | disposition home or self-care (01) ==
LOC: HO.MRI 09:29
PROVIDERS: PCP Internal Medicine; Visit Provider Physical Medicine & Rehabilitation
DX: M54.16 Radiculopathy, lumbar region (principal); M48.062 Spinal stenosis, lumbar region with neurogenic claudication
CPT/HCPCS: 72148

== ENCOUNTER → 2024-05-06 10:06 | Outpatient (BNV) | payer MEDICARE, SELFPAY | PROVIDERS: PCP Internal Medicine; Visit Provider Radiology Diagnostic Radiology | DX: M48.062 Spinal stenosis, lumbar region with neurogenic claudication (principal); M54.16 Radiculopathy, lumbar region | CPT/HCPCS: 72148 ==